=== PATIENT | male | born 1985 | race Caucasian/White ===

== ENCOUNTER → 2016-12-21 | Outpatient (CLI) | payer BC ==
[~2016-12-21] MED LIST: MELO15TA12 PO
--- NOTE | 2016-12-22 12:35 | DI ---
Indication: Chronic low back pain for 2 to 3 months with shooting and burning pains extending into the left leg, no known injury Procedure: MRI LUMBAR SPINE W/O CONTRAST: Encounter: Initial Comparison: 02/16/2016 Technique: Multiplanar MultiPulse MR images of the lumbar spine were obtained without intravenous contrast. Findings: No acute fracture. The normal lumbar lordosis is maintained. No significant spondylolisthesis. No marrow replacing process. The conus terminates at the level of T12-L1. No clumping of the intrathecal nerve roots. Diffusely prominent epidural fat. No acute abnormality of the visualized intra-abdominal organs. Worsened degenerative disc disease and disc space height loss of L5-S1. Level by level degenerative changes are as detailed below: L1-L2: No significant disc bulge, spinal canal stenosis, or neural foraminal narrowing. L2-L3: No significant disc bulge, spinal canal stenosis, or neural foraminal narrowing. L3-L4: No significant disc bulge, spinal canal stenosis, or neural foraminal narrowing. L4-L5: Minimal disc bulge and facet arthropathy without resulting spinal canal stenosis or neural foraminal narrowing. L5-S1: Redemonstration of a broad-based disc bulge with interval development of a new superimposed focal left paracentral inferiorly migrating disc extrusion resulting in severe left lateral recess narrowing and mild spinal canal stenosis. Unchanged mild right neural foraminal narrowing. Impression: Interval development of a focal left paracentral inferiorly migrating disc extrusion at L5-S1 resulting in severe left lateral recess narrowing and mild spinal canal stenosis with likely impingement of the traversing left S1 nerve root. .
== END ==
LOC: IMA 18:41
PROVIDERS: ATTEND Registered Nurse
DX: M48.07 Spinal stenosis, lumbosacral region (principal); M51.17 Intervertebral disc disorders with radiculopathy, lumbosacral region; M54.5 Low back pain

== ENCOUNTER → 2017-01-24 | Outpatient (CLI) | payer BC ==
--- NOTE | 2017-01-24 10:33 | DI ---
INDICATION: ITS.REASON: Z01.811 ENCOUNTER FOR PRE-OPERATIVE RESPIRATORY CLEARANCE PROCEDURE: CHEST 2-VIEWS UPRIGHT (PA \T\ LAT) Encounter: Initial COMPARISON: None FINDINGS: The lungs are clear without evidence of focal abnormal airspace opacity. There is no pleural effusion or pneumothorax. The heart size, mediastinal contours and pulmonary vascularity are within normal limits. There is no significant skeletal abnormality. IMPRESSION: No acute cardiopulmonary disease. .
== END ==
LOC: IMA 09:46
PROVIDERS: ATTEND Registered Nurse
DX: Z01.811 Encounter for preprocedural respiratory examination (principal); Z01.810 Encounter for preprocedural cardiovascular examination